=== PATIENT | female | born 1990 | race Two or more races ===

== ENCOUNTER 2024-08-29 07:57 | Inpatient (IN) | payer MEDICAID ==
[~2024-08-29] VITALS: Ht 157.5 cm; Wt 95.5 kg
[2024-08-29] MEDS ORDERED: GLYCOPYRROLATE 0.2 MG/ML 1ML VIAL ONE (08:10)
[2024-08-29] MEDS ORDERED: ONDANSETRON HCL 4 MG/2 ML VIAL ONE (08:10)
[2024-08-29] MEDS ORDERED: PROPOFOL 10 MG/ML 20 ML IV ONE (08:10)
[2024-08-29] MEDS ORDERED: DexAMETHasone SOD PHOS 10MG/1ML VIAL INJ ONE (08:10)
[2024-08-29] MEDS ORDERED: LIDOCAINE 2% (LOCAL ANESTH.) PF 5ml SDV ONE (08:10)
[2024-08-29] MEDS ORDERED: KETOROLAC TROMETH 30 MG/ML 1ML VIAL ONE (08:10)
[2024-08-29] MEDS ORDERED: KETAMINE 50mg/ML 1ml syringe ONE (08:11)
[2024-08-29] MEDS ORDERED: fentaNYL CITRATE 100 MCG/2 ML VL ONE (08:11)
[2024-08-29] MEDS ORDERED: levoFLOXacin 500MG 100 ML IV ONE (08:37)
[2024-08-29] MEDS ORDERED: ePHEDrine SULFATE 50 MG/ML AMP IV PRN (11:45)
[2024-08-29] MEDS ORDERED: fentaNYL CITRATE 100 MCG/2 ML VL IV PRN (11:45)
[2024-08-29] MEDS ORDERED: ONDANSETRON HCL 4 MG/2 ML VIAL IV PRN ×2 (11:45→13:30)
[2024-08-29] MEDS ORDERED: NALOXONE HCL 0.4 MG/ML VIAL IV PRN (11:45)
[2024-08-29] MEDS ORDERED: HYDROmorphone HCL 2 MG/ML VL/or syr IV PRN (11:45)
[2024-08-29] MEDS ORDERED: FLUMAZENIL 0.1 MG/ML INJ 10ML MDV IV PRN (11:45)
[2024-08-29] MEDS ORDERED: oxyCODONE HCL 5MG TAB PO PRN (11:45)
[2024-08-29] MEDS ORDERED: hydrALAZINE HCL 20 MG/ML VL IV PRN (11:45)
[2024-08-29] MEDS ORDERED: MORPHINE SULFATE INJ 2 MG/ml SYRG IV PRN (12:30)
[2024-08-29] MEDS ORDERED: NITROGLYCERIN 0.4 MG SL TAB SL PRN (12:30)
[2024-08-29] MEDS ORDERED: HYDROcodone-ACET 5/325MG TAB PO PRN (13:30)
[2024-08-29] MEDS: SODIUM CHLORIDE 0.9% 1,000 ML IV SCH (16:03)
[2024-08-29 16:27] VITALS: BP 135/73; PULSE 73; RESP 13; TEMP 98.9; O2SAT 99
[2024-08-29 16:41] VITALS: BP 129/88; PULSE 80; RESP 16; TEMP 98; O2SAT 96
[2024-08-29 20:32] LABS: Basophils # (auto) 0 10 ^3/uL (0-0.2); Basophils % (auto) 0.1 % (0.0-2.0); Eosinophils # (auto) 0 10 ^3/uL (0-0.8); Hematocrit 39.8 % (36.0-46.0); Hemoglobin 13.5 g/dL (12.2-16.2); Lymphocytes # (auto) 0.7 10 ^3/uL (0.4-5.4); Lymphocytes % (auto) 8.1 % (10.0-50.0); Mean Corpuscular Hemoglobin 28.4 pg (28.0-32.0); Mean Corpuscular Hgb Conc. 33.9 g/dL (32.0-36.0); Mean Corpuscular Volume 83.7 fL (80.0-100.0); Monocytes # (auto) 0.2 10 ^3/uL (0-1.3); Monocytes % (auto) 2.7 % (0.0-12.0); Neutrophils # (auto) 7.9 10 ^3/uL (1.6-8.6); Neutrophils % (auto) 89.1 % (37.0-80.0); Platelet Count (auto) 323 10^3/uL (140-450); Red Blood Cells 4.76 10^6/uL (4.0-5.20); Red Cell Distribution Width 13.3 % (11.8-14.3); White Blood Cell 8.9 10^3/uL (4.4-10.8)
[2024-08-29 20:51] LABS: Alanine Aminotransferase 50 U/L (7-40); Albumin 4.3 g/dL (3.2-4.8); Alkaline Phosphatase 63 U/L (46-116); Anion Gap 8 (5-15); Aspartate Aminotransferase 33 U/L (13-40); BUN/Creatinine Ratio 13.2 (10.0-20.0); Blood Urea Nitrogen 10 mg/dL (9-23); Calcium 9.3 mg/dL (8.7-10.4); Carbon Dioxide 20 mmol/L (20-31); Chloride 108 mmol/L (98-107); Glucose 230 mg/dL (74-106); Potassium 4.1 mmol/L (3.5-5.1); Sodium 136 mmol/L (136-145)
[2024-08-29 20:52] LABS: Bilirubin, Total 0.6 mg/dL (0.2-1.0); Total Protein 7.2 g/dL (5.7-8.2)
[2024-08-29 21:00] VITALS: BP 139/75; PULSE 101; RESP 20; TEMP 98.2; O2SAT 98
[2024-08-30 01:00] VITALS: BP 119/70; PULSE 71; RESP 20; TEMP 98.2; O2SAT 97
[2024-08-30 05:00] VITALS: BP 137/85; PULSE 70; RESP 20; TEMP 98; O2SAT 98
[2024-08-30 07:21] LABS: Urine Bacteria FEW /hpf (None Seen); Urine Blood 2+ /uL (Negative); Urine Clarity Clear (Clear); Urine Color Colorless (Yellow); Urine Protein, UAD Negative (Negative); Urine Specific Gravity 1.008 (1.001-1.035); Urine Urobilinogen Normal (Negative); Urine WBC 2 /hpf (0 - 5); Urine pH 6.5 (5.0-9.0)
[2024-08-30 08:00] VITALS: PULSE 72; RESP 16; O2SAT 98
[2024-08-30 09:06] VITALS: BP 130/85; PULSE 72; RESP 16; TEMP 98.6; O2SAT 98
[2024-08-30] MEDS ORDERED: ACET-1881 PO (12:40)
[2024-08-30] MEDS ORDERED: IBUP-1453 PO (12:40)
[2024-08-30 13:00] VITALS: BP 136/76; PULSE 73; RESP 16; TEMP 97.5; O2SAT 99
[2024-08-30 13:02] VITALS: BP 136/76; PULSE 73; RESP 16; TEMP 97.5; O2SAT 99
== END 2024-08-30 15:47 | disposition home or self-care (01) | DRG 443 ==
LOC: SUR 07:57 → OVERFLOW 13:36 → EAST 16:00
PROVIDERS: ADMIT Internal Medicine; ATTEND Student in an Organized Health Care Education/Training Program
PROC: BT1D1ZZ Fluoroscopy of Right Kidney, Ureter and Bladder using Low Osmolar Contrast (ICD-10-PCS; 2024-08-29)
PROC: 0TC08ZZ Extirpation of Matter from Right Kidney, Via Natural or Artificial Opening Endoscopic (ICD-10-PCS; principal; 2024-08-29 10:14)
DX: N20.0 Calculus of kidney (principal); E66.9 Obesity, unspecified; N26.1 Atrophy of kidney (terminal); Z98.890 Other specified postprocedural states; Z68.36 Body mass index [BMI] 36.0-36.9, adult
CPT/HCPCS: 36415; 74018; 76000; 76775; 80053; 81001; 81025; 82360; 85025; G0378; J1100; J1885; J1956; J2003; J2405; J2704